=== PATIENT | male | born 1990 | race Asian ===

== ENCOUNTER 2023-04-29 08:56 | Emergency (ER) | payer OTHER, SELFPAY ==
[~2023-04-29] VITALS: Ht 180.3 cm; Wt 88.5 kg
[2023-04-29] MEDS ORDERED: ACETAMINOPHEN 500 MG TAB PO ONE (11:20)
[2023-04-29] MEDS ORDERED: IBUP-1022 PO (11:56)
[2023-04-29 12:03] VITALS: BP 124/73; TEMP 97.9; O2SAT 100
== END 2023-04-29 12:05 | disposition home or self-care (01) ==
LOC: M ED 08:56
DX: S06.0X0A Concussion without loss of consciousness, initial encounter (principal); W22.01XA Walked into wall, initial encounter; Y92.9 Unspecified place or not applicable; Y93.89 Activity, other specified; Y99.0 Civilian activity done for income or pay; Z79.1 Long term (current) use of non-steroidal anti-inflammatories (NSAID)

== ENCOUNTER 2024-03-19 08:10 | Emergency (ER) | payer OTHER ==
[~2024-03-19] VITALS: Ht 175.3 cm; Wt 86.2 kg
[~2024-03-19 08:10] MED LIST: IBUP-1022 PO
[2024-03-19] MEDS ORDERED: NAPR-837 PO (10:45)
[2024-03-19] MEDS ORDERED: METH-1165 PO (10:45)
[2024-03-19 10:57] VITALS: BP 144/59; TEMP 97.5; O2SAT 100
== END 2024-03-19 11:02 | disposition home or self-care (01) ==
LOC: M ED 09:39
DX: S13.4XXA Sprain of ligaments of cervical spine, initial encounter (principal); V49.40XA Driver injured in collision with unspecified motor vehicles in traffic accident, initial encounter; Z79.1 Long term (current) use of non-steroidal anti-inflammatories (NSAID); Z79.899 Other long term (current) drug therapy; Y92.410 Unspecified street and highway as the place of occurrence of the external cause; Y93.89 Activity, other specified; Y99.9 Unspecified external cause status